=== PATIENT | male | born 1990 | race African-American/Black ===

== ENCOUNTER 2022-03-03 14:17 | Emergency (ER) | payer MEDICAID ==
[~2022-03-03] VITALS: Ht 175.3 cm; Wt 65.0 kg
[2022-03-03 14:46] VITALS: BP 130/87
[2022-03-03] MEDS: normal saline 1000ML IV soln IVB ONE (15:05)
[2022-03-03] MEDS: LORazepam 2 mg/ml vial IV ONE (15:05)
[2022-03-03 15:20] LABS: BASOPHILS % (AUTO) 0.6 % (0-1); EOSINOPHILS % (AUTO) 0.5 % (0-6); HEMATOCRIT 41.5 % (42.0-52.0); HEMOGLOBIN 14.1 g/dl (14.0-17.9); LYMPHOCYTES % (AUTO) 36.9 % (21-51); MEAN CORPUSCULAR HEMOGLOBIN 31.6 PG (27.0-31.0); MEAN PLATELET VOLUME 7.8 FL (7.4-10.4); MONOCYTES # (AUTO) 0.4 X10'3 (0-0.9); MONOCYTES % (AUTO) 7.7 % (2-12); NEUTROPHILS % (AUTO) 54.3 % (42-75); PLATELET COUNT 295 X10'3 (140-440); RED BLOOD COUNT 4.47 X10'6 (4.70-6.10); RED CELL DISTRIBUTION WIDTH 15.2 % (11.5-14.5); WHITE BLOOD COUNT 5.5 X10'3 (4.5-11.0)
[2022-03-03 15:38] LABS: ALANINE AMINOTRANSFERASE 41 U/L (12-78); ALBUMIN 3.9 G/DL (3.4-5.0); ALKALINE PHOSPHATASE 63 IU/L (46-116); ANION GAP 9 (8-16); ASPARTATE AMINO TRANSFERASE 23 U/L (10-37); BILIRUBIN,TOTAL 0.2 MG/DL (0.1-1.0); BLOOD UREA NITROGEN 16 MG/DL (7-18); CALCIUM 9.1 MG/DL (8.5-10.1); CHLORIDE 102 MMOL/L (99-107); CREATININE 0.84 MG/DL (0.60-1.10); GLUCOSE 85 MG/DL (70-104); POTASSIUM 4.1 MMOL/L (3.5-5.1); SODIUM 137 MMOL/L (135-145); TOTAL CARBON DIOXIDE 25.6 MMOL/L (24-32); TOTAL PROTEIN 7.9 G/DL (6.4-8.2); eGFR > 90 ML/MIN
== END 2022-03-03 16:29 | disposition home or self-care (01) ==
LOC: ER 14:18
DX: F41.9 Anxiety disorder, unspecified (principal); R51.9 Headache, unspecified; R56.9 Unspecified convulsions
CPT/HCPCS: 36415; 80053; 85025; 93005; 96361; 96374; 99284; J2060; J7030; 99283

== ENCOUNTER 2022-12-05 13:51 | Emergency (ER) | payer MEDICAID ==
[~2022-12-05] VITALS: Ht 175.3 cm; Wt 68.2 kg
[2022-12-05 13:55] VITALS: BP 131/95
[2022-12-05] MEDS ORDERED: PENI500T2 PO (15:01)
== END 2022-12-05 15:38 | disposition home or self-care (01) ==
LOC: ER 13:51
DX: K02.9 Dental caries, unspecified (principal); F20.9 Schizophrenia, unspecified; F15.10 Other stimulant abuse, uncomplicated; Z56.0 Unemployment, unspecified; Z79.899 Other long term (current) drug therapy
CPT/HCPCS: 99283

== ENCOUNTER 2023-01-10 08:47 | Emergency (ER) | payer MEDICAID ==
[~2023-01-10] VITALS: Ht 172.7 cm; Wt 64.5 kg
[2023-01-10] MEDS ORDERED: ondansetron 4mg rapidly disintigrating tab PO ONE (09:30)
[2023-01-10] MEDS ORDERED: LOPE-144 PO (10:44)
[2023-01-10] MEDS ORDERED: ONDA4TAB12 PO (10:44)
[2023-01-10 11:14] VITALS: BP 133/78
== END 2023-01-10 11:15 | disposition home or self-care (01) ==
LOC: ER 08:47
DX: R11.2 Nausea with vomiting, unspecified (principal); M19.90 Unspecified osteoarthritis, unspecified site; F15.20 Other stimulant dependence, uncomplicated
CPT/HCPCS: 99283